=== PATIENT | female | born 2000 | race Caucasian/White ===

== ENCOUNTER 2023-01-24 04:18 | Emergency (ER) | payer MEDICAID ==
[~2023-01-24] VITALS: Ht 149.9 cm; Wt 50.4 kg
[2023-01-24 05:03] VITALS: BP 122/84; PULSE 78; RESP 18; TEMP 98.3; O2SAT 98
== END 2023-01-24 07:10 | disposition left against medical advice (07) ==
LOC: ER 04:18
DX: Z53.21 Procedure and treatment not carried out due to patient leaving prior to being seen by health care provider (principal)
CPT/HCPCS: 99281

== ENCOUNTER 2023-08-04 21:40 | Emergency (ER) | payer MEDICAID ==
[~2023-08-04] VITALS: Ht 152.4 cm; Wt 61.0 kg
[2023-08-04 21:57] VITALS: BP 131/86; PULSE 97; RESP 18; TEMP 97.9; O2SAT 99
== END 2023-08-04 22:24 | disposition home or self-care (01) ==
LOC: ER 21:51
DX: G43.909 Migraine, unspecified, not intractable, without status migrainosus (principal); Z98.890 Other specified postprocedural states
CPT/HCPCS: 99283